=== PATIENT | female | born 1980 | race African-American/Black ===

== ENCOUNTER 2018-03-29 03:01 | Emergency (ER) | payer MEDICAID, OTHER ==
[~2018-03-29] VITALS: Ht 165.1 cm; Wt 101.2 kg
[~2018-03-29 03:01] MED LIST: IBUPROFEN800 MG ORAL; MEDROL DOSEPAK4 MG ORAL; NITROFURANTOIN100 M2 ORAL; PHENAZOPYRIDIN200 MG ORAL
--- NOTE | 2018-03-29 03:27 | Emergency Room Report ---
History of Present Illness General Chief Complaint: Abdominal Pain Source: Patient Present Illness [facility] This is a 38-year-old female with no cerumen past medical history. She presents with chief complaint of pelvic pain. Onset tonight. Sharp in nature. No radiation. Worse with movement. Better with rest. No dysuria frequency. No hematuria. Does have some brownish discharge she noticed for last 3 days. Denies any other complaint. Said she active with one partner. Allergies: Coded Allergies: No Known Allergies (Unverified , 08/10/14) Patient History Past Medical History: see triage record, old chart reviewed Past Surgical History: other Pertinent Family History: none Social History: Denies: smoking Last Menstrual Period: 10 days ago Now: No : 6 Para: 2 Immunizations: other Reviewed Nursing Documentation: PMH: Agreed; PSxH: Agreed Nursing Documentation-PMH Past Medical History: No Stated History Review of Systems Eye: Denies: eye pain, blurred vision ENT: Denies: ear pain, nose congestion, throat swelling Respiratory: Denies: cough, shortness of breath Cardiovascular: Denies: chest pain, palpitations Gastrointestinal: Reports: abdominal pain; Denies: diarrhea, nausea, vomiting Musculoskeletal: Denies: back pain, joint pain Skin: Denies: rash Neurological: Denies: headache, numbness Endocrine: Denies: increased thirst, increased urine Hematologic/Lymphatic: Denies: easy bruising All Other Systems: negative except mentioned in HPI Physical Exam Vital Signs Date Time Temp Pulse Resp B/P (MAP) Pulse Ox O2 Delivery O2 Flow Rate FiO2 03/29/18 03:13 97.3 65 18 131/90 96 Room Air 97.3 vitals normal Sp02 EP Interpretation: reviewed, normal General Appearance: well appearing, no apparent distress, alert Head: normocephalic, atraumatic Eyes: bilateral eye PERRL, bilateral eye EOMI ENT: hearing grossly normal, normal pharynx Neck: full range of motion, supple, no meningismus Respiratory: chest non-tender, lungs clear, normal breath sounds Cardiovascular #1: regular rate, rhythm, no murmur Gastrointestinal: normal bowel sounds, non tender, no mass, no organomegaly, no bruit, non-distended Genitourinary: other - 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 External exam is normal. Internal exam show some spotting and bleeding on the cervix. There is yellowish discharge. No adnexal mass. Musculoskeletal: back normal, gait/station normal, normal range of motion Neurologic: alert, oriented x3 Psychiatric: mood/affect normal Skin: warm/dry Medical Decision Making Diagnostic Impression: Primary Impression: UTI (lower urinary tract infection) ER Course Patient with pelvic pain. She has a UTI. No evidence of any pyelonephritis. No evidence of cervicitis. We'll discharge home. Last Vital Signs Date Time Temp Pulse Resp B/P (MAP) Pulse Ox O2 Delivery O2 Flow Rate FiO2 03/29/18 03:13 97.3 65 18 131/90 96 Room Air 97.3 Status: improved Disposition: HOME, SELF-CARE Condition: Stable Scripts Cephalexin* (KEFLEX*) 500 Mg Capsule 500 MG ORAL TID, #21 CAP Prov: SARA ANTHONY M.D. 03/29/18 Additional Instructions: Follow-up with your Dr. in 5-7 days days. Return if symptom worsen. SARA ANTHONY M.D. Mar 29, 2018 03:27
[2018-03-29 03:47] LABS: APPEARANCE,URINE CLOUDY; BILIRUBIN, URINE NEGATIVE (NEGATIVE); COLOR,URINE YELLOW; GLUCOSE, URINE (UA) NEGATIVE (NEGATIVE); KETONES,URINE NEGATIVE (NEGATIVE); LEUKOCYTE ESTERASE ,URINE 2+ (NEGATIVE); NITRITE,URINE POSITIVE (NEGATIVE); PH,URINE 5 (4.5-8.0); PROTEIN,URINE 1+ (NEGATIVE); UROBILINOGEN,URINE NORMAL MG/DL (0.0-1.0)
[2018-03-29] MEDS ORDERED: Cephalexin 500mg cap ORAL ONE (04:00)
[2018-03-29] MEDS ORDERED: CEPHALEXIN500 MG ORAL (04:32)
[2018-03-29 04:44] VITALS: BP 127/81
[2018-03-29 04:45] VITALS: BP 131/90
[2018-04-01] MEDS ORDERED: NITROFURANTOIN100 M2 ORAL (07:41)
== END 2018-03-29 04:45 | disposition home or self-care (01) ==
LOC: EMR 03:35
DX: N39.0 Urinary tract infection, site not specified (principal)
CPT/HCPCS: 81003; 81025; 87086; 87181; 87210; 99283

== ENCOUNTER 2018-06-02 21:59 | Emergency (ER) | payer OTHER ==
[~2018-06-02] VITALS: Ht 165.1 cm; Wt 104.3 kg
[~2018-06-02 21:59] MED LIST changes: +CEPHALEXIN500 MG ORAL
[2018-06-02] MEDS ORDERED: CEPHALEXIN500 MG ORAL (23:03)
[2018-06-02] MEDS ORDERED: BENADRYL25 M3 PO (23:03)
--- NOTE | 2018-06-02 23:03 | Emergency Room Report ---
History of Present Illness General Chief Complaint: Animal Bite Source: Patient Present Illness HPI This patient c/o "insect bite" LLE behind left knee. She is currently on BID oral antibiotic although she does not know name. There has been no travel, no trauma, no definite precipitant. No fever. Allergies: Coded Allergies: No Known Allergies (Unverified , 08/10/14) Patient History Last Menstrual Period: last month Now: No Nursing Documentation-PMH Hx Hypertension: Yes Review of Systems Constitutional: Reports: see HPI Musculoskeletal: Reports: see HPI All Other Systems: limited Physical Exam Vital Signs Date Time Temp Pulse Resp B/P (MAP) Pulse Ox O2 Delivery O2 Flow Rate FiO2 06/02/18 22:10 97.9 94 14 126/84 94 Room Air General Appearance: well appearing, no apparent distress Head: normocephalic, atraumatic ENT: hearing grossly normal, normal voice Neck: full range of motion, supple Respiratory: no respiratory distress, speaking full sentences Musculoskeletal: other - there is an area of excoriation behind left knee, surrounded by symmetric circular rashed area, pruritic Neurologic: alert, normal gait Psychiatric: mood/affect normal Skin: no rash Medical Decision Making Diagnostic Impression: Primary Impression: Cellulitis Additional Impression: Urticaria ER Course I think this may be a local infection with urticaria. Recommend oral antibiotic , I will Rx. but have asked patient to call me when she gets home b/c she may be fine with the one she is on. In addition oral Benadryl. Last Vital Signs Date Time Temp Pulse Resp B/P (MAP) Pulse Ox O2 Delivery O2 Flow Rate FiO2 06/02/18 22:10 97.9 94 14 126/84 94 Room Air Disposition: HOME, SELF-CARE Condition: Stable Scripts Diphenhydramine HCl (Benadryl) 25 Mg Capsule 25 MG PO QID for prn, #20 CAP Prov: Martin Mcguire M.D. 06/02/18 Cephalexin* (KEFLEX*) 500 Mg Capsule 500 MG ORAL EVERY 6 HOURS, #20 CAP Prov: Martin Mcguire M.D. 06/02/18 Referrals: [facility],REFERRING (PCP) Patient Instructions: Allergies Martin Mcguire M.D. Jun 02, 2018 23:03
[2018-06-02 23:22] VITALS: BP_SYST 0; BP_SYST 126; BP_DIAS 0; BP_DIAS 84
== END 2018-06-02 23:23 | disposition home or self-care (01) ==
LOC: EMR 22:27
DX: L03.116 Cellulitis of left lower limb (principal); L50.9 Urticaria, unspecified; I10 Essential (primary) hypertension
CPT/HCPCS: 99283

== ENCOUNTER 2018-08-11 21:37 | Emergency (ER) | payer OTHER ==
[~2018-08-11] VITALS: Ht 165.1 cm; Wt 104.3 kg
[~2018-08-11 21:37] MED LIST changes: +BENADRYL25 M3 PO
[2018-08-11] MEDS ORDERED: NKM (21:44)
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
[2018-08-11] MEDS ORDERED: oxyCODONE HCL/Acetaminophen 5/325mg ORAL ONE (22:00)
[2018-08-11 23:05] VITALS: BP 128/80
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
[2018-08-12] MEDS ORDERED: oxyCODONE HCL/Acetaminophen 5/325mg ORAL ONE
--- NOTE | 2018-08-12 | NUR ---
ED Nurse Note: pt reports pain is better, will cont monitor.
[2018-08-12] MEDS ORDERED: IBUPROFEN600 MG ORAL (00:01)
[2018-08-12] MEDS ORDERED: TRAMADOL HCL50 MG ORAL (00:01)
[2018-08-12] MEDS ORDERED: TYLENOL325 MG ORAL (00:01)
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
[2018-08-12 00:29] VITALS: BP 128/85
--- NOTE | 2018-08-12 00:36 | NUR ---
ED Nurse Note: pt d/c instruction w/ prescription given, splint and sling applied by medical technologist generalist, pt reports pain is better, second dose of percocet given per ERMD order, pt education done, pt states her solar energy installation manager is going to give her ride home, pt verbalized understanding and agrees with plan, pt advised to follow up with ortho specialist, pt vss, ambulatory w/ steady gait. all belongings left w/ pt
== END 2018-08-12 00:36 | disposition home or self-care (01) ==
LOC: EMR 22:25
DX: S42.402A Unspecified fracture of lower end of left humerus, initial encounter for closed fracture (principal); W19.XXXA Unspecified fall, initial encounter; Y92.89 Other specified places as the place of occurrence of the external cause; Y99.0 Civilian activity done for income or pay; M25.512 Pain in left shoulder; M25.532 Pain in left wrist
CPT/HCPCS: 99284

== ENCOUNTER 2019-05-01 23:58 | Emergency (ER) | payer MEDICAID, OTHER ==
[~2019-05-01] VITALS: Ht 165.1 cm; Wt 90.7 kg
[~2019-05-01 23:58] MED LIST changes: +IBUPROFEN600 MG ORAL; +NKM; +TRAMADOL HCL50 MG ORAL; +TYLENOL325 MG ORAL
--- NOTE | 2019-05-02 00:14 | Emergency Room Report ---
History of Present Illness General Chief Complaint: Skin Rash/Abscess Source: Patient Present Illness HPI 39-year-old female presents with multiple insect bites to her left hand left forearm, right lower abdomen, small punctate wounds, no fever no chills, she states the bites are itchy no aggravating relieving factors severity is mild, symptoms are constant, patient presents for evaluation. Allergies: Coded Allergies: No Known Allergies (Unverified , 08/10/14) Patient History Past Medical History: see triage record Last Menstrual Period: 04/06/19 Now: No Reviewed Nursing Documentation: PMH: Agreed; PSxH: Agreed Nursing Documentation-PMH Past Medical History: No History, Except For Hx Hypertension: Yes Review of Systems All Other Systems: negative except mentioned in HPI Physical Exam Vital Signs Date Time Temp Pulse Resp B/P (MAP) Pulse Ox O2 Delivery O2 Flow Rate FiO2 05/02/19 00:01 98.2 67 14 128/81 (97) 96 Room Air General Appearance: well appearing, no apparent distress Head: normocephalic, atraumatic ENT: hearing grossly normal, normal voice Neck: full range of motion, supple Respiratory: no respiratory distress, speaking full sentences Neurologic: alert, normal gait Psychiatric: mood/affect normal Skin: rash - Multiple punctate wounds, left forearm, abdomen, back, urticarial rashes noted Medical Decision Making Diagnostic Impression: Primary Impression: Insect bite Qualified Codes: W57.XXXA - Bitten or stung by nonvenomous insect and other nonvenomous arthropods, initial encounter ER Course 39-year-old female presents with insect bites to left hand, forearm, abdomen, will provide patient with Benadryl cream here we will provide antibiotics for possible superinfection, patient to follow-up with PCP disposition home with return precautions Last Vital Signs Date Time Temp Pulse Resp B/P (MAP) Pulse Ox O2 Delivery O2 Flow Rate FiO2 05/02/19 00:01 98.2 67 14 128/81 (97) 96 Room Air Disposition: HOME, SELF-CARE Condition: Stable Scripts Cephalexin* (CEPHALEXIN*) 500 Mg Tablet 500 MG ORAL EVERY 6 HOURS, #28 CAP Prov: Dragan Rendon MD 05/02/19 Trimethoprim/Sulfamethoxazole 160/800* (BACTRIM DS TABLET*) 1 Each Tablet 1 TAB ORAL Q12H, #14 TAB 0 Refills Prov: Dragan Rendon MD 05/02/19 Referrals: [facility] Patient Instructions: Insect Bite Additional Instructions: The patient was provided with discharge instructions, notified to follow-up with a primary care doctor and or specialist in the next 24-48 hours, and to return to the ED if they have worsening of their symptoms. Please note that this report is being documented using 3nder technology. This can lead to erroneous entry secondary to incorrect interpretation by the dictating instrument. Dragan Rendon MD May 02, 2019 00:14
[2019-05-02] MEDS ORDERED: DiphenhydrAMINE & Zinc 28g Cream TOPIC ONE (00:15)
[2019-05-02] MEDS ORDERED: BACTRIM DS TAB1 EAC1 ORAL (00:17)
[2019-05-02] MEDS ORDERED: CEPHALEXIN500 M1 ORAL (00:17)
[2019-05-02 00:25] VITALS: BP 128/81
--- NOTE | 2019-05-02 00:30 | NUR ---
ED Nurse Note: pt walked in c/o multiple insect bite on left hand and arm, noted redness and tenderness. will cont monitor.
[2019-05-02 01:15] VITALS: BP 126/80
--- NOTE | 2019-05-02 01:15 | NUR ---
ED Nurse Note: pt cleared to be d/c per ermd, pt discharge and aftercare instruction provided w/ prescription, pt education done via discussion and handout, pt advised to follow up with pcp or return to ed if changes in condition, vss, ambulatory w/ steady gait, left w/ all belongings.
== END 2019-05-02 01:15 | disposition home or self-care (01) ==
LOC: EMR 05-02 00:15
DX: S60.562A Insect bite (nonvenomous) of left hand, initial encounter (principal); S50.862A Insect bite (nonvenomous) of left forearm, initial encounter; S30.861A Insect bite (nonvenomous) of abdominal wall, initial encounter; W57.XXXA Bitten or stung by nonvenomous insect and other nonvenomous arthropods, initial encounter; Y92.9 Unspecified place or not applicable
CPT/HCPCS: 81025; Z7502; 99282

== ENCOUNTER 2019-08-05 19:36 | Emergency (ER) | payer OTHER ==
[~2019-08-05] VITALS: Ht 165.1 cm; Wt 88.5 kg
[~2019-08-05 19:36] MED LIST changes: +BACTRIM DS TAB1 EAC1 ORAL; +CEPHALEXIN500 M1 ORAL
[2019-08-05 19:53] VITALS: BP 130/80
--- NOTE | 2019-08-05 19:53 | NUR ---
ED Nurse Note: PT WALKED INTO ED FOR C/O FLU LIKE S/SX X 3 DAYS. PT HAS COUGH AND EARACHE.
--- NOTE | 2019-08-05 20:13 | Emergency Room Report ---
History of Present Illness General Chief Complaint: Flu Like Symptoms Source: Patient Present Illness HPI 39-year-old female presents to the emergency department complaining of 9 out of 10 severity left ear pain with severe nasal congestion, pressure type headache and a cough x3 days. Patient reports it is difficult to sleep at night as she cannot breathe through her nose. Patient denies appreciable trauma to the head or the ear. She denies sore throat, neck pain or stiffness. She reports subjective fevers she states she has been taking Advil and Tylenol as needed. She denies any current medical conditions and states she is not currently taking any medications. Has recent travel or ill contacts. She is vaccinated. Pt. denies suspicion of , her LMP was nov. She is on control after having an last month. She denies abdominal pain. Allergies: Coded Allergies: No Known Allergies (Unverified , 08/10/14) Patient History Past Medical History: see triage record Past Surgical History: none Pertinent Family History: none Last Menstrual Period: 06/06/2020 Now: No Reviewed Nursing Documentation: PMH: Agreed; PSxH: Agreed Nursing Documentation-PMH Past Medical History: No History, Except For Hx Hypertension: Yes Hx Diabetes: Yes - gestional dm Review of Systems All Other Systems: negative except mentioned in HPI Physical Exam Vital Signs Date Time Temp Pulse Resp B/P (MAP) Pulse Ox O2 Delivery O2 Flow Rate FiO2 08/05/19 19:50 97.5 73 14 123/85 (98) 96 Room Air Sp02 EP Interpretation: reviewed, normal General Appearance: no apparent distress, alert, GCS 15, non-toxic Head: normocephalic, atraumatic Eyes: bilateral eye normal inspection, bilateral eye PERRL ENT: hearing grossly normal, normal pharynx, no angioedema, normal voice, uvula midline, moist mucus membranes, other - The left tympanic membrane is erythematous and bulging. TTP to the bilateral maxiallary sinuses. clear rhinorrhea noted. the nares are not patent. Neck: full range of motion, no meningismus Respiratory: lungs clear, normal breath sounds, no respiratory distress, no wheezing, speaking full sentences Cardiovascular #1: regular rate, rhythm Musculoskeletal: normal range of motion, gait/station normal, non-tender Neurologic: alert, motor strength/tone normal, oriented x3, sensory intact, responsive, speech normal Psychiatric: judgement/insight normal Skin: no rash Lymphatic: no adenopathy Medical Decision Making PA Attestation Dr. Bell Is my supervising Physician whom patient management has been discussed with. Diagnostic Impression: Primary Impression: Otitis media Qualified Codes: H65.92 - Unspecified nonsuppurative otitis media, left ear ER Course 39-year-old female presents to the emergency department complaining of 9 out of 10 severity left ear pain with severe nasal congestion, pressure type headache and a cough x3 days. Patient reports it is difficult to sleep at night as she cannot breathe through her nose. Patient denies appreciable trauma to the head or the ear. She denies sore throat, neck pain or stiffness. She reports subjective fevers she states she has been taking Advil and Tylenol as needed. She denies any current medical conditions and states she is not currently taking any medications. Has recent travel or ill contacts. She is vaccinated. Pt. denies suspicion of , her LMP was nov. She is on control after having an last month. She denies abdominal pain. Ddx considered but are not limited to OM, OE, mastoiditis, TM perforation, FB Vital signs: are WNL, pt. is afebrile H&PE are most consistent with otitis media ORDERS: none required at this time, the diagnosis is clinical -OTOSCOPY: ED INTERVENTIONS: None required at this time. DISCHARGE: At this time pt. is stable for d/c to home. With PO ABX. Will provide printed patient care instructions, and any necessary prescriptions. Care plan and follow up instructions have been discussed with the patient prior to discharge. RX: Augmentin Suspension 600mg/5ml - take 2.5ml BID x 10 days Last Vital Signs Date Time Temp Pulse Resp B/P (MAP) Pulse Ox O2 Delivery O2 Flow Rate FiO2 08/05/19 19:50 97.5 73 14 123/85 (98) 96 Room Air Disposition: HOME, SELF-CARE Condition: Stable Scripts Pseudoephedrine Hcl* (NEXAFED*) 30 Mg Tablet 30 MG ORAL Q6H PRN for congestion, #21 TAB Prov: Leyda Mehta 08/05/19 Oxymetazoline HCl (Afrin) 15 Ml [place] 2 SPRAY NASAL TWICE A DAY, #1 SPRAY Prov: Leyda Mehta 08/05/19 Amoxicillin/Potassium Clav 875-125* (AUGMENTIN 875-125 TABLET*) 1 Each Tablet 1 TAB ORAL TWICE A DAY for 10 Days, #20 TAB Prov: Leyda Mehta 08/05/19 Codeine/Promethazine Hcl* (PROMETHAZINE-CODEINE SYRUP*) 118 Ml Syrup 5 ML ORAL Q6H PRN for For Cough, #120 ML 0 Refills Prov: Leyda Mehta 08/05/19 Patient Instructions: Otitis Media, Adult, [id number], Upper Respiratory Infection, Adult, [id number] Additional Instructions: Take medications as directed. Follow up with a Primary Care Provider in 3-5 days, even if your symptoms have resolved. --Please review list of primary care clinics, if you do not already have a primary care provider Return sooner to ED if new symptoms occur, or current symptoms become worse. Do not drink alcohol, drive, or operate heavy machinery while taking Cough Syrup as this may cause drowsiness. - Please note that this Emergency Department Report was dictated using Influxveterinary technician assistant technology software, occasionally this can lead to erroneous entry secondary to interpretation by the dictation equipment. Leyda Mehta Aug 05, 2019 20:13
[2019-08-05] MEDS ORDERED: AFRIN NASAL SPR30 ML NASAL (20:14)
[2019-08-05] MEDS ORDERED: PROMETHAZINE-C118 M1 ORAL (20:14)
[2019-08-05] MEDS ORDERED: AUGMENTIN 875-1 EAC1 ORAL (20:14)
[2019-08-05] MEDS ORDERED: NEXAFED30 MG ORAL (20:14)
[2019-08-05 20:31] VITALS: BP 128/80
--- NOTE | 2019-08-05 20:31 | NUR ---
ER DISCHARGE NOTE: Patient is cleared to be discharged per ERMD, pt is aox4, on room air, with stable vital signs. pt was given dc and prescription instructions, pt was able to verbalize understanding, pt id band removed without complications. pt is able to ambulate with steady gait. pt took all belongings.
== END 2019-08-05 20:31 | disposition home or self-care (01) ==
LOC: EMR 20:31
DX: H65.92 Unspecified nonsuppurative otitis media, left ear (principal); I10 Essential (primary) hypertension
CPT/HCPCS: 99282

== ENCOUNTER 2019-12-28 01:49 | Emergency (ER) | payer OTHER ==
[~2019-12-28] VITALS: Ht 165.1 cm; Wt 93.0 kg
[~2019-12-28 01:49] MED LIST changes: +AFRIN NASAL SPR30 ML NASAL; +AUGMENTIN 875-1 EAC1 ORAL; +NEXAFED30 MG ORAL; +PROMETHAZINE-C118 M1 ORAL
[2019-12-28 02:21] VITALS: BP 132/78
[2019-12-28] MEDS ORDERED: Tetanus/Diptheria/Pertussis IM ONE (02:30)
[2019-12-28] MEDS ORDERED: SILVADENE20 GM TP (02:35)
[2019-12-28 02:40] VITALS: BP 132/78
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
== END 2019-12-28 02:40 | disposition home or self-care (01) ==
LOC: EMR 02:20
DX: T24.212A Burn of second degree of left thigh, initial encounter (principal); T24.211A Burn of second degree of right thigh, initial encounter; X13.1XXA Other contact with steam and other hot vapors, initial encounter; Y92.9 Unspecified place or not applicable; E11.9 Type 2 diabetes mellitus without complications; I10 Essential (primary) hypertension; Z23 Encounter for immunization
CPT/HCPCS: 90471; 90715; Z7502; 99283